=== PATIENT | male | born 1960 | race Caucasian/White ===

== ENCOUNTER 2017-11-21 09:53 | Emergency (ER) | payer SELFPAY ==
[2017-11-21 11:04] VITALS: BP 137/91
--- NOTE | 2017-11-21 16:40 | ED ---
Back Pain - HPI Summary HPI Summary: Patient presents to the ED with 3 weeks right sided lower back pain which radiates to the right leg. He notes to some numbness/tingling to the right dueñas and right posterior thigh. He has never had this before. He has been seen by a chiropractor who has adjusted him 3 times with no improvement, he has not tried any medications or heat. Denies tingling. Denies B/B symptoms. Otherwise healthy. Pain is constant, better with position and worse with lying flat. Smoker. Denies any cardiac history. Thorough physical exam was performed , focusing on thoracic and lumbar special tests and ROM. Due to patient pain around injury, physical exam was limited. Limited ROM. Flip Test negative. Straight leg raise positive. Kernig test positive. Negative Babinksi. Hip flexion and extension, knee extension, dorsiflexion, great toe extension and plantar flexion intact. Rotating at hips limited d/t pain. Nerve roots L4-S2 reflexes intact. L1-S2 nerve root sensory intact. No saddle anesthesia. Gait normal. No hx of kidney stones and no blood in urine. - History of Current Complaint Chief Complaint: EDBackInjuryPain Stated Complaint: PAIN Time Seen by Provider: 11/21/17 10:04 Hx Obtained From: Patient Onset/Duration: Sudden Onset Onset/Duration: Started Days Ago Timing: Constant Pain Intensity: 4 Pain Scale Used: 0-10 Numeric Character: Aching Aggravating Symptom(s): Movement, Lifting, Walking, Cough Alleviating Symptom(s): Rest, Position Associated Signs And Symptoms: Positive: Negative - Risk Factors AAA Risk Factors: Negative TAD Risk Factors: Negative Cauda Equina Risk Factors: Negative Epidural Abscess Risk Factors: Negative - Allergies/Home Medications Allergies/Adverse Reactions: Allergies Allergy/AdvReac Type Severity Reaction Status Date / Time No Known Allergies Allergy Verified 11/21/17 09:58 PMH/Surg Hx/FS Hx/Imm Hx Previously Healthy: Yes - Immunization History Hx Pertussis Vaccination: No Immunizations Up to Date: Unable to Obtain/Confirm Infectious Disease History: Unable to Obtain/Confirm Infectious Disease History: Denies: Traveled Outside the [place] in Last 30 Days - Social History Occupation: Employed Full-time Lives: With Family Alcohol Use: None Hx Substance Use: No Substance Use Type: Reports: None Hx Tobacco Use: Yes Smoking Status (MU): Unknown if Ever Smoked Review of Systems Constitutional: Negative Negative: Fever, Chills, Fatigue Eyes: Negative Cardiovascular: Negative Gastrointestinal: Negative Positive: no symptoms reported, see HPI Positive: Arthralgia - right sided lower back pain Skin: Negative Neurological: Negative All Other Systems Reviewed And Are Negative: Yes Physical Exam Triage Information Reviewed: Yes Vital Signs On Initial Exam: Initial Vitals Temp Pulse Resp BP Pulse Ox 98 F 80 17 164/91 97 11/21/17 09:54 11/21/17 09:54 11/21/17 09:54 11/21/17 09:54 11/21/17 09:54 Vital Signs Reviewed: Yes Appearance: Positive: Well-Appearing, Well-Nourished Skin: Positive: Skin Color Reflects Adequate Perfusion Head/Face: Positive: Normal Head/Face Inspection Eyes: Positive: EOMI, DONNA, Conjunctiva Clear Neck: Positive: Nontender, No Lymphadenopathy Respiratory/Lung Sounds: Positive: Breath Sounds Present Cardiovascular: Positive: Pulses are Symmetrical in both Upper and Lower Extremities Musculoskeletal: Positive: Pain @ - right lower back on deep palpation Neurological: Positive: Speech Normal Psychiatric: Positive: Normal, Affect/Mood Appropriate - Seibert Coma Scale Coma Scale Total: 15 Diagnostics - Vital Signs Vital Signs Temp Pulse Resp BP Pulse Ox 11/21/17 11:03 98.6 F 81 18 137/91 96 11/21/17 09:54 98 F 80 17 164/91 97 - Laboratory Lab Statement: Any lab studies that have been ordered have been reviewed, and results considered in the medical decision making process. Back Pain Course/Dx - Course Course Of Treatment: Encouraged Ibuprofen 600mg three times daily with meals for pain. Return precautions given. Educated patient regarding back injuries and healing time and the need for further imaging if discomfort is present for > 6 weeks. Given pain management and muscle relaxers for relief of pain. Patient OK with discharge and will follow up as directed. Patient declines CT scan of the lower back at this time as it likely will not change the course of treatment as described to him. He agrees to try exercises and massage. Will start with gabapentin 300mg at bedtime and he is given flexeril twice daily as needed for any spasms. He will follow up with his PCP. He is to return for any worsening symptoms or B/B dysfunction. - Diagnoses Provider Diagnoses: Acute low back pain, Sciatic leg pain Discharge - Discharge Plan Condition: Stable Disposition: HOME Prescriptions: Cyclobenzaprine TAB* [Flexeril TAB*] 10 mg PO BID PRN #20 tab PRN Reason: Pain Gabapentin CAP(*) [Neurontin 300 CAP(*)] 300 mg PO BEDTIME #30 cap Patient Education Materials: Gabapentin (By mouth), Sciatica (ED), Lumbar Radiculopathy (ED), Lower Back Exercises (ED) Forms: *Work Release Referrals: Jonas Frye MD [Medical Doctor] - No Primary Care Phys,NOPCP [Primary Care Provider] - Additional Instructions: Dx: Sciatica Gabapentin: This is a medication for pain associated with nerves. Take once at bedtime. You may need to have this dose increased, please follow up with your PCP about extending the prescription. Flexeril: This medication is a muscle relaxant and can help relieve muscle spasms, muscle strain, or pain sensations. Flexeril can cause side effects that may impair your thinking or reactions. Be careful if you drive or do anything that requires you to be awake and alert. Avoid drinking alcohol, which can increase some of the side effects of Flexeril. Ibuprofen 600mg three times daily with meals for discomfort. Return to ED if symptoms worsen or fail to improve, notice worsening swelling, warmth or redness around the joint, develop fever, or pain is uncontrolled with OTC medications. I also recommend physical therapy if symptoms do not improve. Please talk to you doctor about this. Moist heat to the area for comfort. Warm showers or baths may improve symptoms. It is important to remain mobile as tolerated to prevent stiffening of the joints and delay healing. Follow up with your PCP. If symptoms remain for > 6 weeks, please seek special medical attention from an orthopedic physician.
== END 2017-11-21 11:03 | disposition home or self-care (01) ==
LOC: ED 09:53
DX: M54.41 Lumbago with sciatica, right side (principal)
CPT/HCPCS: 99281